=== PATIENT | male | born 1945 | race Caucasian/White ===

== ENCOUNTER 2018-10-10 18:27 | Inpatient (IN) | payer MEDICARE ==
[~2018-10-10] VITALS: Ht 190.5 cm; Wt 104.3 kg
--- NOTE | 2018-10-10 19:06 | NUR ---
BIB [facility], SENT BY DR. ABAD FOR HGB 6.6/ HCT 20.1. PT AAOX3, VSS. DENIES CP, SOB, DIZZINESS, N/V/D, WEAKNESS @ THIS TIME. PT SEEN & EVAL'D BY DR. MORLEY. WILL CONT TO MONITOR.
--- NOTE | 2018-10-10 19:13 | NUR ---
CALLED PANEL, PAGER DR GAGNON
--- NOTE | 2018-10-10 19:23 | NUR ---
Bola stephens in [place] - 10/10/18 at 1923 by NELL REPORT RECEIVED FROM ASHISH HARRY.
--- NOTE | 2018-10-10 19:25 | NUR ---
REPORT RECEIVED FROM ASHISH FELTON FOR PIERO.
[2018-10-10 19:28] LABS: BASOPHILS # (AUTO) 0.1 /CMM (0.0-0.2); BASOPHILS % (AUTO) 0.7 % (0.0-2.0); EOSINOPHILS % (AUTO) 2.7 % (0.0-6.0); HEMATOCRIT 23 % (39-51); HEMOGLOBIN 7.6 g/dL (13.5-17.5); LYMPHOCYTES # (AUTO) 1.8 /CMM (0.8-4.8); LYMPHOCYTES % (AUTO) 16.9 % (20.0-44.0); MEAN CORPUSCULAR HGB CONC 33 g/dl (31.0-36.0); MEAN CORPUSCULAR VOLUME 104 fL (80-96); MONOCYTES % (AUTO) 9.9 % (2.0-12.0); NEUTROPHILS # (AUTO) 7.4 /CMM (1.8-8.9); NEUTROPHILS % (AUTO) 69.8 % (43.0-81.0); PLATELET COUNT (AUTO) 443 /CMM (150-450); RED BLOOD CELL COUNT(AUTO) 2.17 MIL/uL (4.5-6.0); WHITE BLOOD COUNT (AUTO) 10.6 K/uL (4.3-11.0)
[2018-10-10 19:44] LABS: CALCIUM, SERUM 8.9 mg/dL (8.5-10.1); CARBON DIOXIDE 26 mmol/L (21-32); CHLORIDE 102 mmol/L (98-107); CREATININE 1.4 mg/dL (0.6-1.3); GLUCOSE 115 mg/dL (74-106); POTASSIUM 4.2 mmol/L (3.5-5.1); SODIUM SERUM 137 mmol/L (136-145); UREA NITROGEN, BLOOD 21 mg/dL (7-18)
--- NOTE | 2018-10-10 19:44 | NUR ---
CALLED [facility]. CHEMICAL OPERATIONS SPECIALIST WAS PAGED
[2018-10-10 19:49] LABS: ALANINE AMINOTRANSFERASE 79 U/L (12-78); ALBUMIN 2.6 g/dL (3.4-5.0); ASPARTATE AMINOTRANSFERASE 65 U/L (15-37); BILIRUBIN,DIRECT 0.1 mg/dL (0.0-0.2); BILIRUBIN,TOTAL 0.2 mg/dL (0.2-1.0); LIPASE 442 U/L (73-393); TOTAL PROTEIN, SERUM 6.6 g/dL (6.4-8.2)
[2018-10-10 19:55] LABS: ALKALINE PHOSPHATASE 87 U/L (46-116)
--- NOTE | 2018-10-10 20:00 | NUR ---
[employer] CALLED REQUESTED BED.
--- NOTE | 2018-10-10 20:11 | NUR ---
BED GRANTED. 326 BED 1
--- NOTE | 2018-10-10 21:00 | NUR ---
FRESH UNIT OF BLOOD INFUSING, WILL MONITOR FOR REACTION.
--- NOTE | 2018-10-10 21:29 | NUR ---
REPORT GIVEN TO MARÍA FELTON FOR PIERO.
[2018-10-10 21:45] VITALS: BP 136/52
[2018-10-10 21:56] VITALS: BP 136/52
--- NOTE | 2018-10-10 21:56 | NUR ---
RN ADMITTING NOTES ADMITTED A 73 Y/O MALE PATIENT FROM ER, TRANSPORTED VIA GURNEY WITH ER NURSE,PATIENT WAS SENT BY DR. ABAD FOR HGB 6.6 / HCT 20.1, ONGOING FRESH UNIT OF BLOOD WITH IV ACCESS ON HIS LEFT AC INTACT AND PATENT, PATIENT IS ALERT ORIENTED X 4 BUT WITH EPISODES OF FORGETFULNESS, INITIAL ASSESSMENT DONE, ORIENTED PATIENT TO ROOM AND THE USE OF CALL LIGHT, ALL SAFETY MEASURES IN PLACED, REPOSITIONED FOR COMFORT, WILL MONITOR ACCORDINGLY.
--- NOTE | 2018-10-10 23:15 | NUR ---
RN NOTES BLOOD TRANSFUSION COMPLETED WITH VITAL SIGNS TAKEN FOLLOWS BP129/57MMHG, HR79, TEMP97.5F, SATING 99%. NO SIGNS OF ANY DISTRESS NOTED, WILL MONITOR ACCORDINGLY.
[2018-10-11] MEDS ORDERED: ACETAMINOPHEN 325 MG TABLET PO PRN (01:00)
[2018-10-11] MEDS ORDERED: HYDROCODONE/APAP 5/325MG 1 EACH TABLET PO PRN (01:00)
[2018-10-11] MEDS ORDERED: MAGNESIUM HYDROXIDE 30 ML UDC PO PRN (01:00)
[2018-10-11] MEDS ORDERED: Z GUARD REMEDY 2 OZ OINT TP PRN (01:00)
[2018-10-11] MEDS ORDERED: ONDANSETRON HCL/PF 4 MG/2 ML VIAL IVP PRN (01:00)
[2018-10-11] MEDS ORDERED: MAG HYDROX/AL HYDROX/SIMETH 30 ML UDC PO PRN (01:00)
[2018-10-11] MEDS ORDERED: ZOLPIDEM TARTRATE 5 MG TABLET PO PRN (01:00)
[2018-10-11] MEDS ORDERED: AMIN30LI27 PO (01:54)
[2018-10-11] MEDS ORDERED: DOCU-141 PO (01:54)
[2018-10-11] MEDS ORDERED: MULT-213 PO (01:54)
[2018-10-11] MEDS ORDERED: HYDR-4077 PO (01:54)
[2018-10-11] MEDS ORDERED: BISA10SU8 RC (01:54)
[2018-10-11] MEDS ORDERED: NA P133E RC (01:54)
[2018-10-11] MEDS ORDERED: HYDR100T27 PO (01:54)
[2018-10-11] MEDS ORDERED: MAGN400O21 PO (01:54)
[2018-10-11] MEDS ORDERED: APIX5TAB PO (01:54)
[2018-10-11] MEDS ORDERED: THIA100V2 IJ (01:54)
[2018-10-11] MEDS ORDERED: FOLI1TAB16 PO (01:54)
[2018-10-11] MEDS ORDERED: ASCO500C18 PO (01:54)
--- NOTE | 2018-10-11 07:25 | NUR ---
RECEIVED PT IN BED , EATING BREAKFAST. NO DISTRESS NOTED , NO COMPLAINS OF PAIN AT THIS TIME.PT ON ROOM AIR, TOLERATING WELL. IV ACCESS LINE INTACT AND PATENT. WILL CONTINUE TO MONITOR
--- NOTE | 2018-10-11 07:40 | NUR ---
RN NOTES ALL NEEDS ATTENDED AND MET, KEPT CLEAN DRY AND COMFORTABLE, PATIENT DENIES ANY PAIN, ENDORSED TO AM NURSE FOR CONTINUITY OF CARE.
[2018-10-11 08:00] VITALS: BP_SYST 127; BP_SYST 147; BP_DIAS 56; BP_DIAS 79
[2018-10-11 08:03] VITALS: BP 127/56
[2018-10-11] MEDS ORDERED: ASCO500T9 PO (08:18)
[2018-10-11] MEDS ORDERED: ACET-868 PO (08:18)
[2018-10-11] MEDS ORDERED: THIA100T74 PO (08:18)
[2018-10-11] MEDS ORDERED: MAGN400O6 PO (08:18)
[2018-10-11] MEDS ORDERED: ACET-2605 PO (08:18)
[2018-10-11] MEDS ORDERED: CARV25TA2 PO (08:18)
[2018-10-11] MEDS ORDERED: DILT30TA14 PO (08:18)
[2018-10-11] MEDS ORDERED: NA PHOS,M-B/NA PHOS,DI-BA 1 EA ENEMA RC PRN (12:30)
[2018-10-11] MEDS ORDERED: BISACODYL SUPP (10 MG) 10 MG/SUPP.RECT SUPP.RECT RC PRN (12:30)
[2018-10-11 12:52] LABS: BASOPHILS # (AUTO) 0.1 /CMM (0.0-0.2); BASOPHILS % (AUTO) 0.6 % (0.0-2.0); EOSINOPHILS % (AUTO) 2.7 % (0.0-6.0); HEMATOCRIT 23 % (39-51); LYMPHOCYTES # (AUTO) 1.6 /CMM (0.8-4.8); LYMPHOCYTES % (AUTO) 17.4 % (20.0-44.0); MEAN CORPUSCULAR HGB CONC 34 g/dl (31.0-36.0); MEAN CORPUSCULAR VOLUME 101 fL (80-96); MONOCYTES # (AUTO) 0.7 /CMM (0.1-1.30); MONOCYTES % (AUTO) 7.2 % (2.0-12.0); NEUTROPHILS # (AUTO) 6.7 /CMM (1.8-8.9); NEUTROPHILS % (AUTO) 72.1 % (43.0-81.0); PLATELET COUNT (AUTO) 460 /CMM (150-450); RED BLOOD CELL COUNT(AUTO) 2.32 MIL/uL (4.5-6.0); WHITE BLOOD COUNT (AUTO) 9.3 K/uL (4.3-11.0)
[2018-10-11 13:09] LABS: IRON, SERUM 25 ug/dl (50-175); TOTAL IRON BINDING CAPACITY 208 ug/dl (250-450)
[2018-10-11 13:17] LABS: FERRITIN 525 ng/mL (8-388)
[2018-10-11] MEDS: hydrALAZINE HCL 50 MG TABLET PO SCH ×2 (13:19→17:27)
[2018-10-11 13:30] VITALS: BP 134/67
[2018-10-11 13:38] LABS: FERRITIN 509 ng/mL (8-388); FREE PSA < 0.06 ng/mL (0.00-45); PROSTATE SPECIFIC ANTIGEN SCR 0.15 ng/mL (0.00-4.00); THYROID STIMULATING HORMONE 14.841 uIU/mL (0.358-3.74); URIC ACID 4.4 mg/dL (2.6-7.2)
[2018-10-11 16:00] VITALS: BP 136/70
[2018-10-11] MEDS: DILTIAZEM HCL 30 MG TABLET PO SCH (17:26)
[2018-10-11] MEDS: DOCUSATE SODIUM 100 MG CAPSULE PO SCH (17:26)
[2018-10-11] MEDS: Z GUARD REMEDY 2 OZ OINT TP SCH (18:12)
--- NOTE | 2018-10-11 18:44 | NUR ---
ALL NEEDS ATTENDED , KEPT CLEAN DRY AND COMFORTABLE, PATIENT DENIES ANY PAIN AT THIS TIME,ON ROOM AIR , IV ASSESS INTACT AND PATENT H/L. ENDORSED TO NEXT SHIFT NURSE FOR CONTINUITY OF CARE.
--- NOTE | 2018-10-11 19:15 | NUR ---
MS RN NOTES RECEIVED PT IN BED AWAKE, A/O X3, AND ABLE TO MAKE NEEDS KNOWN. BREATHING EVEN AND UNLABORED WITH NO S/S OF ACUTE DISTRESS OR SOB NOTED. NO COMPLAINTS OF PAIN AT THIS TIME. PT ON ROOM AIR AND TOLERATING WELL. IV ACCESS LINE INTACT AND PATENT. CALL LIGHT WITHIN REACH. WILL CONTINUE TO MONITOR
[2018-10-11 20:00] VITALS: BP 126/59
[2018-10-11] MEDS: CARVEDILOL 12.5 MG TABLET PO SCH (21:53)
[2018-10-12] MEDS: DILTIAZEM HCL 30 MG TABLET PO SCH ×4 (05:57→17:34)
--- NOTE | 2018-10-12 07:00 | NUR ---
RECEIVED PT IN BED , RESTING. NO DISTRESS NOTED , NO COMPLAINS OF PAIN AT THIS TIME.PT ON ROOM AIR, TOLERATING WELL. IV ACCESS LINE INTACT AND PATENT. WILL CONTINUE TO MONITOR
--- NOTE | 2018-10-12 07:15 | NUR ---
MS RN NOTES PT IN BED AWAKE, A/O X3, AND ABLE TO MAKE NEEDS KNOWN. BREATHING EVEN AND UNLABORED WITH NO S/S OF ACUTE DISTRESS OR SOB NOTED. NO COMPLAINTS OF PAIN AT THIS TIME. PT ON ROOM AIR AND TOLERATING WELL. IV ACCESS LINE INTACT AND PATENT. CALL LIGHT WITHIN REACH. WILL ENDORSE TO ONCOMING NURSE FOR CONTINUATION OF CARE.
[2018-10-12 07:35] LABS: BASOPHILS % (AUTO) 0.5 % (0.0-2.0); EOSINOPHILS % (AUTO) 2.7 % (0.0-6.0); HEMATOCRIT 24 % (39-51); HEMOGLOBIN 8.1 g/dL (13.5-17.5); LYMPHOCYTES # (AUTO) 1.7 /CMM (0.8-4.8); MEAN CORPUSCULAR HGB CONC 34 g/dl (31.0-36.0); MEAN CORPUSCULAR VOLUME 101 fL (80-96); MONOCYTES # (AUTO) 0.7 /CMM (0.1-1.30); MONOCYTES % (AUTO) 8.7 % (2.0-12.0); NEUTROPHILS # (AUTO) 5.8 /CMM (1.8-8.9); NEUTROPHILS % (AUTO) 68.1 % (43.0-81.0); PLATELET COUNT (AUTO) 382 /CMM (150-450); RED BLOOD CELL COUNT(AUTO) 2.35 MIL/uL (4.5-6.0); WHITE BLOOD COUNT (AUTO) 8.5 K/uL (4.3-11.0)
[2018-10-12 07:59] LABS: ALANINE AMINOTRANSFERASE 58 U/L (12-78); ALBUMIN 2.3 g/dL (3.4-5.0); ALKALINE PHOSPHATASE 61 U/L (46-116); ASPARTATE AMINOTRANSFERASE 43 U/L (15-37); BILIRUBIN,TOTAL 0.2 mg/dL (0.2-1.0); CALCIUM, SERUM 8.5 mg/dL (8.5-10.1); CARBON DIOXIDE 24 mmol/L (21-32); CHLORIDE 105 mmol/L (98-107); CREATININE 1.1 mg/dL (0.6-1.3); GLUCOSE 96 mg/dL (74-106); MAGNESIUM 1.6 mg/dL (1.8-2.4); PHOSPHORUS 4.1 mg/dL (2.5-4.9); POTASSIUM 4.2 mmol/L (3.5-5.1); SODIUM SERUM 139 mmol/L (136-145); UREA NITROGEN, BLOOD 15 mg/dL (7-18)
[2018-10-12 08:00] VITALS: BP 142/81
[2018-10-12 08:02] LABS: CHOLESTEROL 131 mg/dL (<200); HDL CHOLESTEROL 22 mg/dL (40-60); LDL 82 mg/dL (0-99); TRIGLYCERIDES 138 mg/dL (30-150)
[2018-10-12] MEDS: ASCORBIC ACID 500 MG TABLET PO SCH (08:17)
[2018-10-12] MEDS: hydrALAZINE HCL 50 MG TABLET PO SCH ×3 (08:18→17:34)
[2018-10-12] MEDS: THIAMINE HCL 100 MG TABLET PO SCH (08:18)
[2018-10-12] MEDS: MULTIVIT W/MINERALS 1 TAB TABLET PO SCH (08:18)
[2018-10-12] MEDS: DOCUSATE SODIUM 100 MG CAPSULE PO SCH ×2 (08:18→17:33)
[2018-10-12] MEDS: FOLIC ACID 1 MG TABLET PO SCH (08:19)
[2018-10-12] MEDS: CARVEDILOL 12.5 MG TABLET PO SCH ×2 (08:19→21:53)
[2018-10-12] MEDS: Z GUARD REMEDY 2 OZ OINT TP SCH (09:00)
[2018-10-12] MEDS: Magnesium 1GM/D5W 100ML PREMIX 100 ML IV SCH ×2 (11:45→13:24)
[2018-10-12 16:00] VITALS: BP 128/55
--- NOTE | 2018-10-12 18:41 | NUR ---
PT IN BED AWAKE, A/O X3. NO COMPLAINTS OF PAIN AT THIS TIME. PT ON ROOM AIR AND TOLERATING WELL. IV ACCESS LINE INTACT AND PATENT. CALL LIGHT WITHIN REACH. WILL ENDORSE TO ONCOMING NURSE FOR CONTINUATION OF CARE.
--- NOTE | 2018-10-12 19:15 | NUR ---
MS RN NOTES RECEIVED PT IN BED AWAKE, A/O X3, AND ABLE TO MAKE NEEDS KNOWN. BREATHING EVEN AND UNLABORED WITH NO S/S OF ACUTE DISTRESS OR SOB NOTED. BREATHING EVEN AND UNLABORED. NO COMPLAINTS OF PAIN AT THIS TIME. PT ON ROOM AIR AND TOLERATING WELL. IV LINE INTACT AND PATENT WITH NO REDNESS. CALL LIGHT WITHIN REACH. WILL CONTINUE TO MONITOR.
[2018-10-12 20:00] VITALS: BP 139/64
[2018-10-13] MEDS: DILTIAZEM HCL 30 MG TABLET PO SCH ×2 (00:01→06:00)
--- NOTE | 2018-10-13 06:51 | NUR ---
MS RN NOTES PT IN BED ASLEEP BUT EASILY AWOKEN VERBALLY OR BY TOUCH. PT A/O X3, AND ABLE TO MAKE NEEDS KNOWN. BREATHING EVEN AND UNLABORED WITH NO S/S OF ACUTE DISTRESS OR SOB NOTED. BREATHING EVEN AND UNLABORED. NO COMPLAINTS OF PAIN AT THIS TIME. PT STABLE THROUGHOUT SHIFT. IV LINE INTACT AND PATENT WITH NO REDNESS. CALL LIGHT WITHIN REACH. WILL ENDORSE TO ONCOMING NURSE FOR CONTINUATION OF CARE.
[2018-10-13 07:03] LABS: BASOPHILS # (AUTO) 0.1 /CMM (0.0-0.2); BASOPHILS % (AUTO) 0.9 % (0.0-2.0); HEMATOCRIT 23 % (39-51); LYMPHOCYTES # (AUTO) 1.5 /CMM (0.8-4.8); LYMPHOCYTES % (AUTO) 19.1 % (20.0-44.0); MEAN CORPUSCULAR HGB CONC 35 g/dl (31.0-36.0); MEAN CORPUSCULAR VOLUME 100 fL (80-96); MONOCYTES # (AUTO) 0.7 /CMM (0.1-1.30); MONOCYTES % (AUTO) 8.6 % (2.0-12.0); NEUTROPHILS # (AUTO) 5.4 /CMM (1.8-8.9); NEUTROPHILS % (AUTO) 68.4 % (43.0-81.0); PLATELET COUNT (AUTO) 347 /CMM (150-450); RED BLOOD CELL COUNT(AUTO) 2.31 MIL/uL (4.5-6.0); WHITE BLOOD COUNT (AUTO) 7.9 K/uL (4.3-11.0)
--- NOTE | 2018-10-13 07:15 | NUR ---
PT A/O X3. BREATHING EVEN AND UNLABORED WITH NO S/S OF ACUTE DISTRESS OR SOB NOTED. BREATHING EVEN AND UNLABORED. NO S/S PAIN NOTED. IV LINE INTACT AND PATENT NO REDNESS NOTED. CALL LIGHT WITHIN REACH. WILL CONTINUE TO MONITOR
[2018-10-13 07:25] LABS: ALANINE AMINOTRANSFERASE 54 U/L (12-78); ALBUMIN 2.3 g/dL (3.4-5.0); ALKALINE PHOSPHATASE 61 U/L (46-116); ASPARTATE AMINOTRANSFERASE 44 U/L (15-37); BILIRUBIN,TOTAL 0.3 mg/dL (0.2-1.0); CALCIUM, SERUM 8.3 mg/dL (8.5-10.1); CARBON DIOXIDE 26 mmol/L (21-32); CHLORIDE 103 mmol/L (98-107); GLUCOSE 103 mg/dL (74-106); POTASSIUM 4.3 mmol/L (3.5-5.1); SODIUM SERUM 138 mmol/L (136-145); UREA NITROGEN, BLOOD 13 mg/dL (7-18)
[2018-10-13 07:33] LABS: THYROID STIMULATING HORMONE 10.426 uIU/mL (0.358-3.74)
[2018-10-13 08:00] VITALS: BP 117/63
[2018-10-13 08:31] VITALS: BP 117/63
[2018-10-13] MEDS: DOCUSATE SODIUM 100 MG CAPSULE PO SCH (08:32)
[2018-10-13] MEDS: MULTIVIT W/MINERALS 1 TAB TABLET PO SCH (08:34)
[2018-10-13] MEDS: THIAMINE HCL 100 MG TABLET PO SCH (08:34)
[2018-10-13] MEDS: CARVEDILOL 12.5 MG TABLET PO SCH (08:34)
[2018-10-13] MEDS: ASCORBIC ACID 500 MG TABLET PO SCH (08:34)
[2018-10-13] MEDS: FOLIC ACID 1 MG TABLET PO SCH (08:34)
[2018-10-13 08:35] VITALS: BP 117/63
[2018-10-13] MEDS: hydrALAZINE HCL 50 MG TABLET PO SCH (08:35)
[2018-10-13] MEDS: Z GUARD REMEDY 2 OZ OINT TP SCH (08:37)
[2018-10-13] MEDS ORDERED: DAKINS QUARTER STRENGTH (0.125%) 480 ML BOTTLE TOP SCH (09:30)
[2018-10-13] MEDS ORDERED: HYDROGEL DRESSING 90 GM TUBE TP SCH (09:30)
[2018-10-13] MEDS ORDERED: HYDROGEL DRESSING 90 GM TUBE TP PRN (09:30)
--- NOTE | 2018-10-13 09:30 | NUR ---
WOUND CARE CONSULT: PT PRESENTS WITH STAGE 4 ULCER TO RT HIP AREA , RT BACK OPEN WOUND, LEFT BACK AND BUTTOCKS, GROIN, PERINEUM RASHES AND THICKENED SKIN WITH EDEMA AND CALLUSES TO FEET AND LOWER LEGS, ALL PRESENT ON ADMISSION. RECOMMEND SURGICAL CONSULT. RECOMMENDATIONS MADE FOR SKIN PROTECTION AND WOUND CARE. DISCUSSED WITH NURSING STAFF. WILL SEE PRN. CURRENT ABEL SCORE IS 16. PT ABLE TO ASSIST WITH TURNING AND REPOSITIONING IN BED. PT AMBULATORY PER NURSING STAFF. Addendum: 10/13/18 at 0933 by SUSAN SHEPARD [id number] Amended: Links added.
[2018-10-13] MEDS ORDERED: Hydrogel Dressing TP (11:25)
[2018-10-13] MEDS ORDERED: LEVO50TA8 PO (11:25)
[2018-10-13 12:09] LABS: *SPE A/G RATIO 0.8 (0.7-1.7); *SPE ALBUMIN 2.5 g/dL (2.9-4.4); *SPE ALPHA-1-GLOBULIN 0.3 g/dL (0.0-0.4); *SPE ALPHA-2-GLOBULIN 0.9 g/dL (0.4-1.0); *SPE BETA GLOBULIN 1.1 g/dL (0.7-1.3); *SPE GLOBULIN, TOTAL 3.1 g/dL (2.2-3.9); *SPE M-SPIKE Not Observed g/dL (Not Observed); *SPEGAMMA GLOBULIN 0.7 g/dL (0.4-1.8)
[2018-10-13 12:32] LABS: OCCULT BLOOD STOOL POSITIVE (NEGATIVE)
--- NOTE | 2018-10-13 14:15 | NUR ---
PATIENT CLEARED BY DR. NELSON FOR DISCHARGE TO [facility]. PATIENT ALERT AND ORIENTED X3, FORGETFUL. VS ARE STABLE AND WITHIN NORMAL RANGE, PATIENT ON ROOM AIR SATURATING WELL, NO SOB , NOT IN ANY DISTRESS. REPORT GIVEN TO FACILITY PRIER TO TRANSFER. ALL D/C INSTRUCTIONS PROVIDED, MED RECONCILE PROVIDED, WOUND CARE PROVIDED PRIOR DISCHARGE. PICTURES IN THE CHART. IV LINE REMOVED, NO BLEEDING AT THE SITE. ID BAND REMOVED. PT HAS NO BELONGINGS. PATIENT PICKED UP BY [facility].
[2018-10-14] MEDS ORDERED: LEVOTHYROXINE SODIUM 50 MCG TABLET PO SCH (09:00)
== END 2018-10-13 14:15 | DRG 811 ==
LOC: ER 18:37 → MED 21:07
PROVIDERS: ADMIT Internal Medicine; ATTEND Internal Medicine
PROC: 30233N1 Transfusion of Nonautologous Red Blood Cells into Peripheral Vein, Percutaneous Approach (ICD-10-PCS; principal; 2018-10-10)
DX: D53.9 Nutritional anemia, unspecified (principal); N17.0 Acute kidney failure with tubular necrosis; G30.9 Alzheimer's disease, unspecified; J44.9 Chronic obstructive pulmonary disease, unspecified; Z85.828 Personal history of other malignant neoplasm of skin; I48.91 Unspecified atrial fibrillation; Z87.891 Personal history of nicotine dependence; Y90.9 Presence of alcohol in blood, level not specified; M54.16 Radiculopathy, lumbar region; F43.10 Post-traumatic stress disorder, unspecified; I10 Essential (primary) hypertension; F02.80 Dementia in other diseases classified elsewhere, unspecified severity, without behavioral disturbance, psychotic disturbance, mood disturbance, and anxiety; E78.5 Hyperlipidemia, unspecified; F10.21 Alcohol dependence, in remission
CPT/HCPCS: 36415; 71045-TC; 76700-TC; 80048-TC; 80053-TC; 80061-TC; 80076-TC; 82272-TC; 82378; 82728-TC; 83540-TC; 83615-TC; 83690-TC; 83735-TC; 84100-TC; 84153-TC; 84154-TC; 84155; 84165; 84439-TC; 84443-TC; 84481; 84484-TC; 84550-TC; 85025-TC; 85045-TC; 85652-TC; 85730-TC; 86850-TC; 86921-TC; 87081-TC; A6248; A6253; A6402; G0378; J3475; J7040; J7050; P9016-BL